=== PATIENT | female | born 2000 | race Caucasian/White ===

== ENCOUNTER 2018-04-22 12:26 | Emergency (ER) | payer BC, MEDICAID ==
[~2018-04-22] VITALS: Ht 162.6 cm; Wt 85.0 kg
[~2018-04-22 12:26] MED LIST: IBUP-1984 PO; LEVO175T38 PO
[2018-04-22 12:38] VITALS: BP 124/68
--- NOTE | 2018-04-22 13:55 | NUR ---
vs 82, 99% 124/65
== END 2018-04-22 14:48 | disposition home or self-care (01) ==
LOC: ER 12:27
DX: S09.90XA Unspecified injury of head, initial encounter (principal); J45.909 Unspecified asthma, uncomplicated; R51 Headache; W20.8XXA Other cause of strike by thrown, projected or falling object, initial encounter; Y93.89 Activity, other specified; Y92.89 Other specified places as the place of occurrence of the external cause; Y99.8 Other external cause status
CPT/HCPCS: 99281